=== PATIENT | female | born 1980 | race Hispanic/Latino ===

== ENCOUNTER 2018-12-20 10:45 | Observation (INO) | payer MEDICAID ==
[2018-12-20] VITALS (22 sets, daily range): BP systolic 92–132; BP diastolic 46–84
[~2018-12-20] VITALS: Ht 149.9 cm; Wt 56.7 kg
[2018-12-20] MEDS ORDERED: ONDANSETRON HCL 4 MG/2 ML VIAL ONE ×2 (11:39→16:36)
[2018-12-20] MEDS ORDERED: SODIUM CHLORIDE 0.9% 1000ML 1,000 ML IV ONE ×2 (11:39→15:30)
[2018-12-20] MEDS ORDERED: KETOROLAC TROMETHAMINE 30MG/ML ONE (11:39)
[2018-12-20 11:45] LABS: HEMATOCRIT 35.5 % (36-48); LYMPHOCYTES % (AUTO) 13.1 % (21.0-51.0); MEAN CORPUSCULAR HGB CONC 34.4 g/dL (32.0-36.0); MEAN CORPUSCULAR VOLUME 90.1 fL (79-99); MONOCYTES % (AUTO) 16.8 % (3.0-13.0); NEUTROPHILS % (AUTO) 70.1 % (40.0-77.0); PLATELET COUNT (AUTO) 244 K/uL (130-400); RED BLOOD CELL COUNT(AUTO) 3.94 MIL/uL (4.00-5.50); RED CELL DISTRIBUTION WIDTH 13.8 % (11.0-15.5); WHITE BLOOD COUNT (AUTO) 7.2 K/uL (4.8-10.8)
[2018-12-20 11:47] LABS: APPEARANCE,URINE Clear (CLEAR); BILIRUBIN,URINE Negative (NEGATIVE); COLOR,URINE Yellow (YELLOW); GLUCOSE, URINE (UA) Negative (NEGATIVE); KETONES,URINE Negative (NEGATIVE); LEUKOCYTE ESTERASE ,URINE Negative (NEGATIVE); NITRATE,URINE Negative (NEGATIVE); OCCULT BLOOD,URINE Moderate (NEGATIVE); PH,URINE 5.5 (5.0-8.0); PROTEIN,URINE Trace mg/dL (NEGATIVE)
[2018-12-20 11:51] LABS: HCG,QUAL RESULT NEGATIVE (NEGATIVE)
[2018-12-20 11:54] LABS: BACTERIA,URINE Few /HPF (None Seen); RBC,URINE 0-1 /HPF (0-1); WBC,URINE 0-1 /HPF (0-1)
[2018-12-20 11:55] LABS: AMPHET/METH SCREEN,URINE NEGATIVE (NEGATIVE); BARBITURATE SCREEN, URINE NEGATIVE (NEGATIVE); BENZODIAZEPINES SCREEN,URINE NEGATIVE (NEGATIVE); CANNABINOID SCREEN,URINE NEGATIVE (NEGATIVE); COCAINE SCREEN,URINE NEGATIVE (NEGATIVE); OPIATE SCREEN,URINE NEGATIVE (NEGATIVE); PHENCYCLIDINE SCREEN,URINE NEGATIVE (NEGATIVE)
[2018-12-20 12:01] LABS: ALBUMIN 3.5 g/dL (3.5-5.0); BILIRUBIN,DIRECT 0.1 mg/dL (0.0-0.3); BILIRUBIN,TOTAL 0.4 mg/dL (0.2-1.0); CREATININE 0.7 mg/dL (0.5-1.5); TOTAL PROTEIN, SERUM 7.9 g/dL (6.0-8.3)
[2018-12-20 12:03] LABS: POTASSIUM 2.9 mmol/L (3.5-5.1)
[2018-12-20] MEDS ORDERED: POTASSIUM CHLORIDE 20MEQ/100ML 100 ML IV PRN (14:30)
[2018-12-20] MEDS ORDERED: ACETAMINOPHEN 325 MG TAB PO PRN (14:30)
[2018-12-20] MEDS ORDERED: ONDANSETRON HCL 4 MG/2 ML VIAL IV PRN (14:30)
[2018-12-20] MEDS ORDERED: LIDOCAINE HCL-MPF 1% 2ML VIAL IV PRN (14:30)
[2018-12-20] MEDS ORDERED: ZOSYN 3.375GM+NS 50ML 50 ML IV ONE (15:30)
[2018-12-20] MEDS ORDERED: MORPHINE SULFATE 2 MG/ML 1ML SYG IVP PRN ×2 (15:30→19:00)
[2018-12-20] MEDS ORDERED: DEXAMETHASONE SOD PHOSPHATE 10MG/ML 1ML VIAL ONE (16:34)
[2018-12-20] MEDS ORDERED: LIDOCAINE PF 2% 5ML ABBOJECT ONE (16:34)
[2018-12-20] MEDS ORDERED: SUCCINYLCHOLINE 200MG/10ML SYR ONE (16:34)
[2018-12-20] MEDS ORDERED: MIDAZOLAM HCL 1 MG/ML 2ML VIAL ONE (16:35)
[2018-12-20] MEDS ORDERED: PROPOFOL 10 MG/ML 20ML VIAL IV ONE (16:36)
[2018-12-20] MEDS ORDERED: ROCURONIUM 10MG/1ML SYR 10 MG/ML ML ONE (16:36)
[2018-12-20] MEDS ORDERED: NEOSTIGMINE 5MG/5ML SYR IV ONE (16:36)
[2018-12-20] MEDS ORDERED: GLYCOPYRROLATE 1 MG/5 ML SYRINGE ONE (16:36)
[2018-12-20] MEDS ORDERED: FENTANYL CITRATE PF 50 MCG/1 ML 2ML VIAL ONE (16:37)
[2018-12-20] MEDS ORDERED: BUPIVACAINE/PF 0.5% 10ML VIAL ONE (16:57)
[2018-12-20] MEDS ORDERED: ONDANSETRON HCL 4 MG/2 ML VIAL IVP PRN (19:00)
--- NOTE | 2018-12-20 20:00 | NUR ---
PT. UP TO BR WITH ASSIST, VOIDED. DENIED DIZZINESS. MARCELINO CARE DONE.
[2018-12-20] MEDS: FAMOTIDINE/PF 20 MG/2 ML VIAL IV SCH (20:19)
--- NOTE | 2018-12-20 20:20 | NUR ---
PT. MEDICATED FOR C/O PAIN AND NAUSEA, NO EMESIS NOTED.
[2018-12-20] MEDS: ZOSYN 3.375GM+NS 50ML 50 ML IV SCH (21:02)
[2018-12-20] MEDS: LACTATED RINGERS 1000ML 1,000 ML IV SCH (21:02)
--- NOTE | 2018-12-20 21:20 | NUR ---
DENIED PAIN AND N/V.
[2018-12-20] MEDS: SODIUM CHLORIDE 0.9% 1000ML 1,000 ML IV SCH (21:50)
[2018-12-20] MEDS ORDERED: FLU VACC QS2019-20 36MOS UP/PF 60 MCG/0.5 ML ML IM ONE (23:30)
[2018-12-21 00:15] VITALS: BP 113/63
[2018-12-21 04:00] VITALS: BP 104/67
[2018-12-21] MEDS: ZOSYN 3.375GM+NS 50ML 50 ML IV SCH ×2 (04:54→12:57)
[2018-12-21] MEDS ORDERED: FLU VACC QS2019-20 36MOS UP/PF 60 MCG/0.5 ML ML IM ONE (05:31)
[2018-12-21 05:52] LABS: BASOPHILS % (AUTO) 0.1 % (0.0-5.0); HEMATOCRIT 32.2 % (36-48); LYMPHOCYTES % (AUTO) 8.7 % (21.0-51.0); MEAN CORPUSCULAR HEMOGLOBIN 30.8 pg (27.0-33.0); MEAN CORPUSCULAR HGB CONC 33.4 g/dL (32.0-36.0); MEAN CORPUSCULAR VOLUME 92.3 fL (79-99); MONOCYTES % (AUTO) 4.3 % (3.0-13.0); NEUTROPHILS % (AUTO) 86.9 % (40.0-77.0); PLATELET COUNT (AUTO) 193 K/uL (130-400); RED BLOOD CELL COUNT(AUTO) 3.49 MIL/uL (4.00-5.50); RED CELL DISTRIBUTION WIDTH 13.7 % (11.0-15.5); WHITE BLOOD COUNT (AUTO) 6.8 K/uL (4.8-10.8)
[2018-12-21 06:05] LABS: CREATININE 0.6 mg/dL (0.5-1.5); POTASSIUM 3.9 mmol/L (3.5-5.1)
[2018-12-21] MEDS: ACETAMINOPHEN-CODEINE 300/30MG TAB PO PRN ×2 (06:07→14:07)
[2018-12-21] MEDS: LACTATED RINGERS 1000ML 1,000 ML IV SCH (07:04)
[2018-12-21] MEDS: SODIUM CHLORIDE 0.9% 1000ML 1,000 ML IV SCH (07:05)
[2018-12-21 08:05] VITALS: BP 113/73
[2018-12-21] MEDS: FAMOTIDINE/PF 20 MG/2 ML VIAL IV SCH (09:30)
--- NOTE | 2018-12-21 09:30 | NUR ---
PT ACTIVITY PT AMBULATING IN HALLWAY AND DENIES PAIN OR DIZZINESS. TOLERATED REGULAR DIET FOR BREAKFAST.
[2018-12-21 12:53] VITALS: BP 116/71
--- NOTE | 2018-12-21 14:00 | NUR ---
PT ACTIVITY AMBULATING IN HALLWAY AND TOLERATED WELL WITHOUT ANY COMPLAINTS.
[2018-12-21 16:30] VITALS: BP 116/73
--- NOTE | 2018-12-21 16:45 | NUR ---
ROUNDING WENDI AVILA AT BEDSIDE TO ASSESS AND TALK TO PT. NEW ORDERS RECEIVED FOR DISCHARGE FROM SURGICAL STANDPOINT.
--- NOTE | 2018-12-21 17:00 | NUR ---
DR. RAMSEY INFORMED OF PT'S CLEARANCE FROM SURGICAL STANDPOINT. NO NEW ORDERS RECEIVED AT THIS TIME.
--- NOTE | 2018-12-21 18:30 | NUR ---
MITZY LEONARDO CARDIAC CATH LAB TECHNOLOGIST INFORMED OF PT STATUS AND OF SURGICAL CLEARANCE FOR DISCHARGE. MITZY STATED WOULD SPEAK WITH DR. MARTE REGARDING ROUNDING ON PT.
--- NOTE | 2018-12-21 19:05 | NUR ---
ARIAN BURNS [employer] WORKER HELPER AT BEDSIDE TO ASSESS AND TALK TO PT. NEW ORDERS RECEIVED FOR DISCHARGE.
--- NOTE | 2018-12-21 19:35 | NUR ---
DISCHARGE PT LEFT UNIT VIA WHEELCHAIR, ACCOMPANIED BY FAMILY. DENIED PAIN AND HAD NO COMPLAINTS. TRANSPORTED BY PERSONAL VEHICLE.
== END 2018-12-21 19:35 | disposition home or self-care (01) ==
LOC: EDH 10:45 → EDHIP 10:46 → WSH 18:45
PROVIDERS: ADMIT Internal Medicine; ATTEND Internal Medicine
DX: K35.80 Unspecified acute appendicitis (principal); E87.6 Hypokalemia; M32.9 Systemic lupus erythematosus, unspecified; Z23 Encounter for immunization; Z90.49 Acquired absence of other specified parts of digestive tract
CPT/HCPCS: 36415 ×2; 44970; 74176; 80048 ×2; 80076; 80305; 81001; 81025; 83690; 85025 ×2; 88304; 90471; 96365; 96366 ×3; 96375; 96376; 99284; A4510; A4600; A4649 ×4; C1769 ×3; G0378 ×29; J0330; J1100; J1885; J2001; J2250; J2405 ×3; J2543 ×4; J2704; J2710; J3010; J3490 ×4; J7030 ×3; J7120 ×2; Q2035

== ENCOUNTER 2022-01-15 19:32 | Emergency (ER) | payer MEDICAID ==
[~2022-01-15] VITALS: Ht 160 cm; Wt 63.5 kg
[2022-01-15 20:04] LABS: BASOPHILS % (AUTO) 0.4 % (0.0-5.0); EOSINOPHILS % (AUTO) 0.7 % (0.0-8.0); HEMATOCRIT 37.7 % (36-48); LYMPHOCYTES % (AUTO) 12.9 % (21.0-51.0); MEAN CORPUSCULAR HEMOGLOBIN 29.7 pg (27.0-33.0); MEAN CORPUSCULAR HGB CONC 32.9 g/dL (32.0-36.0); MEAN CORPUSCULAR VOLUME 90.2 fL (79-99); NEUTROPHILS % (AUTO) 80.3 % (40.0-77.0); PLATELET COUNT (AUTO) 340 K/uL (130-400); RED BLOOD CELL COUNT(AUTO) 4.18 MIL/uL (4.00-5.50); RED CELL DISTRIBUTION WIDTH 13.2 % (11.0-15.5); WHITE BLOOD COUNT (AUTO) 24.6 K/uL (4.8-10.8)
[2022-01-15 20:18] LABS: CREATININE 0.8 mg/dL (0.5-1.5); POTASSIUM 5.2 mmol/L (3.5-5.1)
[2022-01-15 20:22] LABS: TOTAL PROTEIN, SERUM 8.5 g/dL (6.0-8.3)
[2022-01-15] MEDS ORDERED: NALOXONE HCL 0.4 MG/1 ML ML IVP SCH ×2 (20:30)
[2022-01-15] MEDS ORDERED: 0.9%NACL 1000ML 1,000 ML IV ONE (20:30)
[2022-01-15 20:40] LABS: CREATINE KINASE, TOTAL 139 U/L (21-232)
[2022-01-15 20:41] LABS: ACETAMINOPHEN < 1 mcg/mL (10-30); ALCOHOL, BLOOD < 3 mg/dL (0-10); SALICYLATE < 2.8 mg/dL (2.8-20.0)
[2022-01-15 21:06] LABS: AMPHET/METH SCREEN,URINE NEGATIVE (NEGATIVE); BARBITURATE SCREEN, URINE NEGATIVE (NEGATIVE); BENZODIAZEPINES SCREEN,URINE NEGATIVE (NEGATIVE); CANNABINOID SCREEN,URINE POSITIVE (NEGATIVE); COCAINE SCREEN,URINE NEGATIVE (NEGATIVE); OPIATE SCREEN,URINE NEGATIVE (NEGATIVE); PHENCYCLIDINE SCREEN,URINE NEGATIVE (NEGATIVE)
[2022-01-15 22:50] VITALS: BP 110/66
[2022-01-15 23:21] LABS: APPEARANCE,URINE CLEAR (CLEAR); BILIRUBIN,URINE NEGATIVE (NEGATIVE); COLOR,URINE LIGHT-YELLOW (YELLOW); GLUCOSE, URINE (UA) 500 mg/dL (NEGATIVE); KETONES,URINE 40 mg/dL (NEGATIVE); LEUKOCYTE ESTERASE ,URINE NEGATIVE Leu/uL (NEGATIVE); MUCUS,URINE FEW LPF (None Seen); NITRATE,URINE NEGATIVE (NEGATIVE); OCCULT BLOOD,URINE NEGATIVE (NEGATIVE); PROTEIN,URINE 20 mg/dL (NEGATIVE); RBC,URINE 0-1 /HPF (0-1); SQUAMOUS EPITHELIAL CELL,UR FEW /HPF (0-2); UROBILINOGEN,URINE 0.2 mg/dL (0.2-1.0)
== END 2022-01-15 23:24 | disposition home or self-care (01) ==
LOC: EDH 19:32
DX: R41.0 Disorientation, unspecified (principal); Z90.89 Acquired absence of other organs
CPT/HCPCS: 99285; 96374; 70450; 71045; 96361; 82550; 80053; 80305; 84703; 82140; 85025; 36415; 81001; G0481; J2310 ×2; J7030